=== PATIENT | male | born 1990 | race Caucasian/White ===

== ENCOUNTER 2024-11-05 20:09 | Emergency (ER) | payer OTHER, SELFPAY ==
--- NOTE | ~2024-11-05 | CT_ITS ---
CLINICAL HISTORY: RLQ pain, appy? CT abdomen and pelvis with contrast Comparison: None provided Findings: No acute findings within visualized lung bases. Few scattered low-attenuation foci throughout the liver with the largest measuring 1.3 cm in the right lobe. Liver is otherwise unremarkable. Spleen, adrenal glands, kidneys, pancreas, and gallbladder are unremarkable. No free air or free fluid. Unremarkable urinary bladder. Normal-sized prostate gland. Visualized vascular structures are within normal limits. Nondistended stomach. Small bowel is normal caliber. No obstruction. There is evidence of segmental wall thickening throughout the colon with mild associated pericolonic inflammation. There is a tubular structure present in the right lower abdomen/ upper pelvis viral to the cecum on series 3, image 68 and series 7 image 41 that resembles normal appearing appendix. No acute osseous abnormality. No lytic or sclerotic osseous lesions. No definite pathologically enlarged lymph nodes. Impression: 1. No definite primary or secondary signs to suggest acute appendicitis. 2. Constellation of findings as detailed above could represent component of mild colitis in the appropriate clinical setting. 3. Low-attenuation foci throughout the liver, difficult to fully characterize due to small size however statistically favored to represent benign cysts or hemangiomas. If clinically indicated, ultrasound may be considered for further evaluation. 4. Additional findings as above. This document has been electronically signed by: Bess Pritchett MD on 11/06/2024 00:45:22
[2024-11-05 20:19] VITALS: BP 139/75; PULSE 56; RESP 16; TEMP 36.8; O2SAT 99; BMI 22.4
--- NOTE | 2024-11-05 20:19 | ED_ITS ---
HPI - General Adult General Chief complaint: Nausea/Vomiting/Diarrhea Stated complaint: throwing up blood/ feels clog in stomach Time Seen by Provider: 11/05/24 22:10 Source: patient Limitations: no limitations History of Present Illness ED Provider: Martha Mehta PA-C HPI narrative: 33-year-old trans male to female patient presents with the abdominal pain x1 day. Pain over mid to right lower abdomen, unable to describe the nature of her discomfort. Associated nausea vomiting. Patient thought that they were constipated, and head administered an enema, because they ?felt a firm mass in the right lower abdomen?. Discomfort worse with the ambulation or lying on their stomach. Denies fever. Related Data Previous Rx's ?Medication ?Instructions ?Recorded ketorolac 10 mg tablet 10 mg PO Q6H PRN pain #20 ta bs 11/06/24 levofloxacin 750 mg tablet 750 mg PO Q24H #6 tabs 10/10 0 metronidazole 500 mg tablet 500 mg PO Q8H 7 days #21 t abs 11/06/24 ondansetron HCl 4 mg tablet 4 mg PO Q8H PRN nausea and 11/06/24 vomiting #15 tabs Allergies Allergy/AdvReac Type Severity Reaction Status Date / Time No Known Allergies Allergy Verified 11/05/24 20:22 Review of Systems 2 Review of Systems: Yes all other systems are reviewed and are negative Constitutional: Constitutional: Denies fatigue and Denies fever(s) Cardiovascular: Cardiovascular: Denies chest pain Respiratory: Respiratory: Denies cough Gastrointestinal: Gastrointestinal: Reports abdominal pain, Reports constipation, Reports nausea and Reports vomiting Endocrine: Endocrine: Denies fatigue PMF Past Medical History Attestation statement: The following information was validated with the patient. Social History Social History Smoked in Last 30 Days: No Substance Use Type: Marijuana Substance Use Frequency: Daily Advance Directives: No Advance Directives Information Provided: No Do you have a plan to hurt others: No Plan Physical Exam ED Vital Signs: Vital Signs - 24 hr 11/05/24 20:19 Temperature 98.2 F Pulse Rate 56 Respiratory Rate 16 Blood Pressure 139/75 Pulse Oximetry 99 Oxygen Delivery Method Room Air BMI result Body Mass Index 22.4 Const Other: Alert well-appearing Orientation/consciousness: patient oriented x3 Resp Effort & Inspection: normal respiratory effort Cardio Other: Normal peripheral perfusion GI Other: Abdomen is soft, nondistended, mild tenderness across suprapubic and right lower quadrant without guarding Skin Other: Warm dry no rash Neuro General: patient oriented x3, gait normal, no focal motor deficits and CN's II- XI intact bilaterally Psych Other: Cooperative Course Course Course Narrative: 11/05/24 2019 TAY Hoover This is a Rapid Medical Examination (RME) performed by Vielka Ngo PA-C in triage. Full HPI, ROS, assessment and treatment plan per primary provider in the Main ED. Hx: 33 yo M here for eval of right sided abdominal pain, nausea beginning today. reports forcing himself to vomit. he initially had an episode of loose stools then felt like he couldn't pass a BM so he gave himself an enema. no urinary symptoms. Plan: labs, UA Medications Administered Discontinued Medications Generic Name Dose Route Start Last Admin Trade Name Freq PRN Reason Stop Dose Admin Sodium Chloride 1,000 mls @ 999 mls/hr 11/05/24 22:15 11/05/24 23:49 Ns IV 11/05/24 23:15 Infused .Q1H1M DANIA Infusion Iohexol 85 ml 11/05/24 23:13 11/05/24 23:13 Iohexol 350 Mg/Ml 100 Ml Infus..Btl IV 11/05/24 23:14 85 ml ONCE ONE Administration Ketorolac Tromethamine 15 mg 11/05/24 22:36 11/05/24 22:41 Ketorolac Tromethamine 15 Mg/Ml Vial IVPUSH 11/05/24 22:37 15 mg ONCE ONE Administration Ondansetron HCl 4 mg 11/05/24 22:11 11/05/24 22:18 Ondansetron Hcl 4 Mg/2 Ml Vial IVPUSH 11/05/24 22:12 4 mg ONCE ONE Administration Ondansetron HCl 4 mg 11/06/24 00:25 11/06/24 00:47 Ondansetron Hcl 4 Mg/2 Ml Vial IVPUSH 11/06/24 00:26 4 mg ONCE ONE Administration Medical Decision Making Medical Decision Making [facility] Narrative: 33-year-old trans male to female patient presents with the abdominal pain x1 day. Pain over mid to right lower abdomen, unable to describe the nature of her discomfort. Associated nausea vomiting. Patient thought that they were constipated, and head administered an enema, because they ?felt a firm mass in the right lower abdomen?. Discomfort worse with the ambulation or lying on their stomach. Denies fever. Denies abdominal distention or inability to pass flatus. Problem: Constipation History: Per patient I have considered the following differential diagnoses: Constipation, bowel obstruction, appendicitis, torsion, renal colic Plan: Given distribution of discomfort in nature of symptoms, I am most concerned for appendicitis. Screening labs were already obtained from triage, she has a significant leukocytosis. We will be obtaining a CT scan. Giving IV fluid Toradol and Zofran. The patient admits to struggling with constipation, this could simply be constipation. Thought about torsion, however they are not complaining of any testicular discomfort. Also thought about renal colic, however the patient does not have any related symptoms. I have independently reviewed the following tests: Labs: Significant leukocytosis, not anemic, no electrolyte abnormality, urine not infected CT abdomen and pelvis:mpression: 1. No definite primary or secondary signs to suggest acute appendicitis. 2. Constellation of findings as detailed above could represent component of mild colitis in the appropriate clinical setting. 3. Low-attenuation foci throughout the liver, difficult to fully characterize due to small size however statistically favored to represent benign cysts or hemangiomas. If clinically indicated, ultrasound may be considered for further evaluation. 4. Additional findings as above. Lab Data 11/05/24 20:42 11/05/24 20:42 Labs: Lab Results 11/05/24 Range/Units 20:42 WBC 19.7 H (4.8-10.8) X10*3/uL RBC 4.66 (4.60-5.80) X10*6/uL Hgb 14.6 (14.0-18.0) g/dl Hct 41.9 L (42.0-52.0) % MCV 89.9 (80.0-98.0) fL MCH 31.3 (27.0-33.0) pg MCHC 34.8 (31.0-36.0) g/dl RDW 12.4 (11.0-16.0) % Plt Count 346 (160-400) X10*3/uL MPV 9.5 (9.4-12.4) fL Immature Gran % (Auto) 0.5 H (0.0-0.4) % Neut % (Auto) 92.7 H (45-73) % Lymph % (Auto) 4.1 L (20-40) % [place] % (Auto) 2.5 (2-11) % Eos % (Auto) 0.0 (0-4) % Baso % (Auto) 0.2 (0-2) % Lymph # (Auto) 0.8 L (1.2-4.9) X10*3/uL [place] # (Auto) 0.5 (0.1-1.2) X10*3/uL Eos # (Auto) 0.0 (0.0-0.4) X10*3/uL Baso # (Auto) 0.0 (0.0-0.2) X10*3/uL Abs Immat Gran (auto) 0.10 H (0.00-0.03) X10*3/uL Absolute Neuts (auto) 18.2 H (2.0-8.3) x10*3/uL Absolute Nucleated RBC 0.000 (0.0-0.012) X10*3/uL Nucleated RBC % (auto) 0.0 (0.0-0.2) /100WBC Smear Tech's Comments VERIFIED Sodium 138 (135-145) mmol/L Potassium 4.2 (3.3-5.1) mmol/L Chloride 107 (96-108) mmol/L Carbon Dioxide 19 L (22-29) mmol/L Anion Gap 16 (12-20) BUN 18 H (9-16) mg/dL Creatinine 0.98 (0.5-1.4) mg/dL Estim Creat Clear Calc 96.4 Estimated GFR > 60 Random Glucose 144 H (60-115) mg/dL Calcium 9.9 (8.4-10.2) mg/dL Magnesium 1.6 (1.6-2.6) mg/dL Total Bilirubin 0.7 (0.0-1.0) mg/dL AST 38 H (5-37) U/L ALT 38 (0-40) U/L Alkaline Phosphatase 78 (39-117) U/L Total Protein 7.9 (6.5-8.0) g/dL Albumin 5.1 H (3.5-5.0) g/dL Lipase 8 (8-78) U/L Urine Color Dark Yellow Urine Appearance Cloudy Urine pH 5.5 (5.0-9.0) Ur Specific [place] >= 1.030 H (1.005-1.025) Urine Protein 100 (2+) H (Neg-Trace) mg/dL Urine Glucose (UA) Negative (Negative) mg/dL Urine Ketones 15 (Negative) mg/dL Urine Blood Negative (Negative) Urine Nitrite Negative (Negative) Ur Leukocyte Esterase Trace H (Negative) Urine RBC 6-10 H (0-2) /HPF Urine WBC 0-5 (0-5) /HPF Ur Squamous Epith Cells 11-20 (0-2) /HPF Urine Bacteria None Seen (None Seen) Hyaline Casts >20 (0-2) /LPF Discharge Plan Discharge Clinical Impression: Colitis Patient Disposition: Home, Self-Care Instructions: Colitis (ED) Additional Instructions: The CT scan revealed that you have mild colitis. See home care instructions. Use the Toradol as needed for discomfort. Uses Zofran as needed for nausea. Take the Flagyl and levofloxacin as directed, these are both antibiotics. Be sure to complete the course of each antibiotic. Follow up with your primary care provider within the next 1-1/2-2 weeks for recheck. Prescriptions: New ketorolac 10 mg tablet 10 mg PO Q6H PRN (Reason: pain) Qty: 20 0RF Rx Instructions: maximum total duration of 5 days from all oral, intranasal, or parenteral formulations. The patient received IV Toradol here in the emergency department. metronidazole 500 mg tablet 500 mg PO Q8H 7 Days Qty: 21 0RF levofloxacin 750 mg tablet 750 mg PO Q24H Qty: 6 0RF ondansetron HCl 4 mg tablet 4 mg PO Q8H PRN (Reason: nausea and vomiting) Qty: 15 0RF Print Language: Yakut
[2024-11-05 20:47] LABS: Basophils Percent Auto 0.2 % (0-2); Hematocrit 41.9 % (42.0-52.0); Hemoglobin 14.6 g/dl (14.0-18.0); Imm Gran Pct Auto 0.5 % (0.0-0.4); Lymphocytes Absolute Auto 0.8 X10*3/uL (1.2-4.9); Lymphocytes Percent Auto 4.1 % (20-40); MANUAL DIFF FLAG SCAN; Mean Corpuscular HGB Conc 34.8 g/dl (31.0-36.0); Mean Corpuscular Hemoglobin 31.3 pg (27.0-33.0); Mean Corpuscular Volume 89.9 fL (80.0-98.0); Mean Platelet Volume 9.5 fL (9.4-12.4); Monocytes Absolute Auto 0.5 X10*3/uL (0.1-1.2); Monocytes Percent Auto 2.5 % (2-11); Neutrophils Absolute Auto 18.2 x10*3/uL (2.0-8.3); Neutrophils Percent Auto 92.7 % (45-73); Platelet Count 346 X10*3/uL (160-400); Red Blood Count 4.66 X10*6/uL (4.60-5.80); Red Cell Distribution Width 12.4 % (11.0-16.0); SCAN SMEAR FLAG 1; White Blood Count 19.7 X10*3/uL (4.8-10.8)
[2024-11-05 20:48] LABS: Appearance Urine Cloudy; Color Urine Dark Yellow; Glucose Urine UA Negative (Negative); Leukocyte Esterase Urine Trace (Negative); Nitrite Urine Negative (Negative); PH 5.5 (5.0-9.0); Specific Gravity - Urine >= 1.030 (1.005-1.025); UMIC TRIGGER UACC YES; Urine Blood Negative (Negative); Urine Ketones 15 mg/dL (Negative); Urine Protein 100 (2+) mg/dL (Neg-Trace)
[2024-11-05 20:56] LABS: Bacteria Urine None Seen (None Seen); Hyaline Casts Urine >20 /LPF (0-2); WBC Urine 0-5 /HPF (0-5)
[2024-11-05 21:01] LABS: Alanine Aminotransferase 38 U/L (0-40); Albumin Level 5.1 g/dL (3.5-5.0); Alkaline Phosphatase 78 U/L (39-117); Anion Gap 16 (12-20); Aspartate Amino Transferase 38 U/L (5-37); Bilirubin Total 0.7 mg/dL (0.0-1.0); Blood Urea Nitrogen 18 mg/dL (9-16); Calcium 9.9 mg/dL (8.4-10.2); Carbon Dioxide 19 mmol/L (22-29); Chloride 107 mmol/L (96-108); Creatinine Clr Calc Pharmacy 96.4; Estimated Glomerular Filt Rate > 60; Glucose Random 144 mg/dL (60-115); Lipase 8 U/L (8-78); Magnesium 1.6 mg/dL (1.6-2.6); Potassium 4.2 mmol/L (3.3-5.1); Sodium 138 mmol/L (135-145); Total Protein 7.9 g/dL (6.5-8.0)
[2024-11-05 21:05] LABS: SLIDE REVIEW VERIFIED
[2024-11-05] MEDS: ondansetron HCL 4 MG/2 ML VIAL IVPUSH (22:18)
[2024-11-05] MEDS: 0.9 % Sodium Chloride 1,000 ML 999 ML IV (22:18)
[2024-11-05] MEDS: Ketorolac Tromethamine 15 MG/ML VIAL IVPUSH (22:41)
[2024-11-05] MEDS: iohexoL 350 MG/ML 100 ML INFUS..BTL 85 ML IV (23:13)
[2024-11-06] MEDS: ondansetron HCL 4 MG/2 ML VIAL IVPUSH (00:47)
--- NOTE | 2024-11-06 01:24 | PC.NURSE ---
pt medicated for nausea, provider into discuss plan of care.
[2024-11-06] MEDS: levoFLOXacin 750 MG TABLET PO (01:44)
[2024-11-06] MEDS: metroNIDAZOLE 500 MG TABLET PO (01:44)
--- NOTE | 2024-11-06 01:46 | PC.NURSE ---
medicated per mar.
[2024-11-06 01:58] VITALS: BP 113/53; PULSE 50; RESP 20; TEMP 36.4; O2SAT 99
--- NOTE | 2024-11-06 02:04 | PC.NURSE ---
Medicated per mar, Iv removed, reviewed discharge instructions with pt. pt verbalized understanding, no sign of distress.
[2024-11-06 02:05] VITALS: BP 113/53; PULSE 50; RESP 20; TEMP 36.4; O2SAT 99
== END 2024-11-06 02:05 | disposition home or self-care (01) ==
PROVIDERS: Physician Assistant Medical; Emergency Provider Emergency Medicine
DX: K52.9 Noninfective gastroenteritis and colitis, unspecified (principal); R11.2 Nausea with vomiting, unspecified; R10.2 Pelvic and perineal pain; Z79.899 Other long term (current) drug therapy
CPT/HCPCS: 36415; 74177; 80053; 81001; 83690; 83735; 85025; 96361; 96374; 96375; 96376; 99285; J1885; J2405; Q9967

== ENCOUNTER → 2024-11-05 22:36 | Outpatient (BNV) | payer OTHER, SELFPAY | PROVIDERS: Emergency Provider Emergency Medicine; Visit Provider Radiology Diagnostic Radiology | DX: R10.31 Right lower quadrant pain (principal) | CPT/HCPCS: 74177 ==